=== PATIENT | female | born 1990 | race African-American/Black ===

== ENCOUNTER 2023-02-16 18:22 | Emergency (ER) | payer OTHER, SELFPAY ==
[2023-02-16 18:34] VITALS: BP 150/102; PULSE 85; RESP 16; TEMP 36.9; O2SAT 99
--- NOTE | 2023-02-16 19:00 | ED.URI ---
HPI - URI/Sore Throat General Chief Complaint: Upper Respiratory Infection Stated Complaint: Sinus Time Seen by Provider: 02/16/23 18:51 Source: patient and RN notes reviewed Mode of arrival: ambulatory Limitations: no limitations History of Present Illness HPI Narrative: Patient presents today complaining of a one-week history of congestion and sinus pressure that has been worse in the morning and at night with green nasal drainage. She denies any additional symptoms such as cough, fever, sore throat, chest pain, shortness of breath. She has been using allergy medication, which has been providing some mild relief. Denies known sick contacts. Related Data Allergies Allergy/AdvReac Type Severity Reaction Status Date / Time No Known Allergies Allergy Verified 02/16/23 18:36 Review of Systems Review of Systems: CONSTITUTIONAL: Denies body aches, fever, chills, or sweats. EYES: Denies visual changes, redness, or discharge. ENT: Denies rhinorrhea, sore throat, or otalgia.+ congestion, sinus pressure CARDIOVASCULAR: Denies chest pain, palpitations, or edema. RESPIRATORY: Denies cough or dyspnea. GASTROINTESTINAL: Denies abdominal pain, nausea, vomiting, or diarrhea. GENITOURINARY: Denies dysuria or hematuria. SKIN: Denies rash, itching, or wounds. MUSCULOSKELETAL: Denies back pain, joint pain, or myalgia. NEUROLOGIC: Denies headache, numbness, tingling, or weakness. PSYCH: Denies depression or anxiety. PMFSH Comments At time of signature, I have reviewed and agree with nursing past medical, surgical, social and family history unless otherwise noted. Please see nursing chart for further information. There is no relevant family history pertinent to the presenting complaint Exam Narrative: GENERAL: Well-appearing, well-nourished, and in no acute distress. HEAD: Normocephalic, atraumatic. EYES: EOMI. No redness or drainage. Conjunctivae normal. ENT: Mucous membranes pink and moist. Nares congested. Bilateral erythematous and edematous nasal turbinates with purulent discharge. TMs normal bilaterally. Throat normal. Uvula midline. NECK: Normal AROM. Supple. No lymphadenopathy. CHEST: No respiratory distress. Clear to auscultation. HEART: Regular rate and rhythm. No murmur appreciated. EXTREMITIES: Normal range of motion. No edema. SKIN: Warm, dry, no rash. Capillary refill normal. Normal skin turgor. NEURO: No focal deficits. Alert and oriented x3. Gait steady. PSYCH: Normal affect. No signs of depression or anxiety. Course Course Level of Care: Express Care Visit Vital Signs Vital signs: Vital Signs Temperature 98.5 F 02/16/23 18:34 Pulse Rate 85 02/16/23 18:34 Respiratory Rate 16 02/16/23 18:34 Blood Pressure 150/102 H 02/16/23 18:34 Pulse Oximetry 99 02/16/23 18:34 Oxygen Delivery Room Air 02/16/23 18:34 Temperature 98.5 F 02/16/23 18:34 Pulse Rate 85 02/16/23 18:34 Respiratory Rate 16 02/16/23 18:34 Blood Pressure 150/102 H 02/16/23 18:34 Pulse Oximetry 99 02/16/23 18:34 Oxygen Delivery Room Air 02/16/23 18:34 Reviewed MDM - URI/Sore Throat MDM Narrative Medical decision making narrative: Patient will be treated for presumed sinusitis based on her symptoms. Prescription for amoxicillin sent to pharmacy. Anticipatory guidance given. Differential Diagnosis Differential diagnosis: Likely upper respiratory infection and sinusitis Critical Care Time Critical Care Time Critical Care Time: No Discharge Plan Discharge Clinical Impression: Sinusitis Qualifiers: Sinusitis location: unspecified location Chronicity: acute Recurrence: non-recurrent Qualified Code(s): J01.90 - Acute sinusitis, unspecified Patient Disposition: Home, Self-Care Condition: Stable Instructions: Antibiotic Form, Sinusitis (ED) Additional Instructions: Please take the amoxicillin as prescribed until gone. Continue allergy medication for symptoms. Consider Flonas
== END 2023-02-16 19:07 | disposition home or self-care (01) ==
PROVIDERS: Emergency Provider Nurse Practitioner; PCP Family Medicine
DX: J01.90 Acute sinusitis, unspecified (principal)
CPT/HCPCS: 99213; G0463